=== PATIENT | male | born 1950 | race Caucasian/White ===

== ENCOUNTER 2022-12-09 13:05 | Emergency (ER) | payer MEDICARE ==
[~2022-12-09] VITALS: Ht 180.3 cm; Wt 100.0 kg
[~2022-12-09 13:05] MED LIST: ALPR-384 PO; CHLO25TA2 PO; NIFE-33 PO; OMEP20TA43 PO; TEMA15CA5 PO; VALS160T2 PO
[2022-12-09 15:24] VITALS: BP 133/81
== END 2022-12-09 16:37 | disposition home or self-care (01) ==
LOC: ER 13:05
DX: S29.9XXA Unspecified injury of thorax, initial encounter (principal); J98.11 Atelectasis; R50.9 Fever, unspecified; Z79.899 Other long term (current) drug therapy; V87.7XXA Person injured in collision between other specified motor vehicles (traffic), initial encounter; Y93.89 Activity, other specified; Y92.89 Other specified places as the place of occurrence of the external cause; Y99.8 Other external cause status
CPT/HCPCS: 71250; 99284

== ENCOUNTER 2023-05-09 17:23 | Emergency (ER) | payer MEDICARE ==
[~2023-05-09] VITALS: Ht 177.8 cm; Wt 100.0 kg
[2023-05-09 17:50] LABS: MEAN CORPUSCULAR HEMOGLOBIN 30.2 PG (27.0-31.0)
[2023-05-09 17:53] LABS: BASOPHILS % (AUTO) 0.4 % (0-1); EOSINOPHILS # (AUTO) 0.1 X10'3 (0-0.9); EOSINOPHILS % (AUTO) 1.4 % (0-6); HEMATOCRIT 46.4 % (42.0-52.0); LYMPHOCYTES # (AUTO) 1.2 X10'3 (1.1-4.8); LYMPHOCYTES % (AUTO) 16.1 % (21-51); MEAN CORPUSCULAR HGB CONC 34.4 g/dL (33.0-36.5); MEAN CORPUSCULAR VOLUME 87.9 FL (78-98); MEAN PLATELET VOLUME 9.1 FL (7.4-10.4); MONOCYTES # (AUTO) 0.4 X10'3 (0-0.9); MONOCYTES % (AUTO) 5.7 % (2-12); NEUTROPHILS # (AUTO) 5.6 X10'3 (1.8-7.7); NEUTROPHILS % (AUTO) 76.4 % (42-75); PLATELET COUNT 186 X10'3 (140-440); RED BLOOD COUNT 5.28 X10'6 (4.70-6.10); RED CELL DISTRIBUTION WIDTH 12.5 % (11.5-14.5); WHITE BLOOD COUNT 7.4 X10'3 (4.5-11.0)
[2023-05-09 18:04] LABS: ALANINE AMINOTRANSFERASE 42 U/L (12-78); ALBUMIN 4.7 G/DL (3.4-5.0); ALBUMIN/GLOBULIN RATIO 1.4 (1.1-1.5); ALKALINE PHOSPHATASE 64 IU/L (46-116); ANION GAP 10 (8-16); ASPARTATE AMINO TRANSFERASE 29 U/L (10-37); BILIRUBIN,TOTAL 0.8 MG/DL (0.1-1.0); BLOOD UREA NITROGEN 13 MG/DL (7-18); CALCIUM 9.9 MG/DL (8.5-10.1); CHLORIDE 100 MMOL/L (99-107); CREATININE 0.93 MG/DL (0.60-1.10); GLUCOSE 123 MG/DL (70-104); POTASSIUM 3.2 MMOL/L (3.5-5.1); SODIUM 139 MMOL/L (135-145); eGFR 80 ML/MIN
[2023-05-09] MEDS ORDERED: ringers solution, lactated 1000ml IV soln IV ONE (20:20)
[2023-05-09 21:56] VITALS: BP 153/80
== END 2023-05-09 21:59 | disposition home or self-care (01) ==
LOC: ER 17:25
DX: R42 Dizziness and giddiness (principal); I10 Essential (primary) hypertension; Z79.899 Other long term (current) drug therapy
CPT/HCPCS: 36415; 71045; 80053; 83880; 84484; 85025; 93005; 99285; J7120